=== PATIENT | female | born 1960 | race Caucasian/White ===

== ENCOUNTER 2020-03-29 08:56 | Observation (INO) | payer BC ==
[2020-03-29] MEDS ORDERED: Labetalol HCl 100 MG/20 ML VIAL ONE (09:19)
[2020-03-29 09:30] LABS: #Eosinphils 0.1 thou/uL (0.0-0.7); #Lymphocytes 1.2 thou/uL (1.20-3.40); #Monocytes 0.5 thou/uL (0.11-0.59); %Basophils 0.6 % (0.0-1.0); %Eosinophils 1.7 % (0.0-10.0); %Lymphocytes 17.9 % (21.0-51.0); %Monocytes 7.2 % (0.0-10.0); %Neutrophils 72.6 % (42.0-75.0); Hemoglobin 13.4 g/dL (12.0-16.0); Mean Corpuscular HGB CONC 33.2 g/dL (32.0-36.0); Mean Corpuscular Hemoglobin 29.2 pg (27.0-31.0); Mean Corpuscular Volume 87.9 fL (78.0-98.0); Mean Platelet Volume 7.5 fL (7.4-10.4); Platelet Count 257 thou/uL (130-400); White Blood Cell (WBC) Count 6.9 thou/uL (4.8-10.8)
[2020-03-29 09:52] LABS: ALT (SGPT) 20 U/L (8-55); AST (SGOT) 14 U/L (5-34); Albumin 3.9 g/dL (3.5-5.0); Alkaline Phosphatase 70 U/L (40-110); Anion Gap 12 mmol/L (10-20); BUN (Urea Nitrogen) 21 mg/dL (9.8-20.1); Bilirubin, Total 0.8 mg/dL (0.2-1.2); Calc. Creatinine Clearance 0 mL/min (70-130); Calcium 9.1 mg/dL (7.8-10.44); Carbon Dioxide 24 mmol/L (22-29); Chloride 108 mmol/L (98-107); Estimated GFR-MDRD 67; Globulin 2.9 g/dL (2.4-3.5); Glucose 129 mg/dL (70-105); Potassium 4.2 mmol/L (3.5-5.1); Protein, Total 6.8 g/dL (6.0-8.3); Sodium 140 mmol/L (136-145)
--- NOTE | 2020-03-29 10:28 | RAD ---
EXAM: Single view of the chest HISTORY: Chest pain and dizziness COMPARISON: 06/03/2018 FINDINGS: Single view of the chest shows an enlarged but stable cardiomediastinal silhouette. The pa cemaker is unchanged in position. Stable increased density projecting over the lower aspect of both thoraces likely represents the patient's overlying breast tissue. There is no evidence of consolidati on, mass, or pleural effusion. No acute osseous abnormality. IMPRESSION: Cardiomegaly without evidence of acute cardiopulmonary disease
[2020-03-29 11:34] LABS: Bilirubin Negative (Negative); Blood, Urine Negative (Negative); Clarity Clear (Clear); Glucose, Urine (Dipstick) Normal (Negative); Ketone, Urine Negative (Negative); Leukocyte Negative Leu/uL (Negative); Nitrite Negative (Negative); Protein, Urine (Dipstick) Negative (Neg-Trace); Urobilinogen Normal mg/dL (Less than 2); pH, Urine 5.5 (5.0-9.0)
[2020-03-29 13:06] LABS: Troponin I 0.014 ng/mL (< 0.028)
--- NOTE | 2020-03-29 14:28 | PDOC.HHP ---
Hospitalist HPI - History of Present Illness History of Present Illness: ADMISSION DATE: 03/29/2020 TIME OF ASSESSMENT: 1345 PRIMARY CARE PHYSICIAN: Carlie CHIEF COMPLAINT: Palpitations HPI: Patient is a 59-year-old female past medical history significant for atrial fibrillation and COVID-19. She presents to the ER today for complaints of pressure-like chest pain and a lightheaded feeling. She states that she was driving into work today and felt a pressure-like chest pain that lasted approximately 1 minute. She denies that it radiated anywhere, denied nausea, denied diaphoresis, denies shortness of breath. Afterward patient states she just did not feel right. This morning she took her Multaq as scheduled and took a double dose of her Coreg as she felt that her heart was in a weird rhythm. She also took her scheduled Eliquis. She has a history of 2 previous ablations and states that she was in a regular rhythm until the beginning of March. On February 26 she was diagnosed positive with COVID-19 and after that time she knows she was in atrial fibrillation again. She denies her defibrillator firing. ED COURSE: Today in the ER she had labs completed, chest x-ray and EKG. She was given 2 doses of labetalol 5 mg IV and 1 dose of Cardizem 15 mg IV. Patient was discussed with Rosa Rodríguez NP as she is a patient of theirs at [place] arrhythm[facility]. Recommendation was given for the Cardizem 15 mg IV and if she became rate controlled she could possibly be discharged today if not she will possibly need a cardioversion. VITAL SIGNS ThuMar 29, 2020 08:56 DARLYN Harrell Ashlee BP: 133/98, Pulse: 111, Resp: 20, O2 sat: 98 on (Room Air), Time: 03/29/2020 08:56. VITAL SIGNS ThuMar 29, 2020 09:30 DARLYN Harrell Ashlee BP: 123/73, Pulse: 102, Resp: 17, Temp: 98 (Oral), Pain: 0, O2 sat: 98 on (Room Air), Time: 03/29/2020 09:30. VITAL SIGNS ThuMar 29, 2020 10:24 DARLYN Harrell Ashlee BP: 114/76, Pulse: 106, Resp: 16, Pain: 0, O2 sat: 97 on (Room Air), Time: 03/29/2020 10:24. VITAL SIGNS Lyssa Mar 29, 2020 09:45 HarrellDARLYN Janice BP: 110/68, Pulse: 121, Resp: 24, Pain: 0, O2 sat: 96 on (Room Air), Time: 03/29/2020 09:45. VITAL SIGNS Lyssa Mar 29, 2020 11:01 HarrellDARLYN Janice BP: 131/83, Pulse: 110, Resp: 20, O2 sat: 97 on (Room Air), Time: 03/29/2020 11:01. VITAL SIGNS ThuMar 29, 2020 11:15 Julio CesarDARLYN Janice BP: 111/88, Pulse: 114, Resp: 18, O2 sat: 98 on (Room Air), Time: 03/29/2020 11:15. VITAL SIGNS ThuMar 29, 2020 11:30 HarrellDARLYN Janice BP: 117/81, Pulse: 114, Resp: 20, Pain: 0, O2 sat: 97 on (Room Air), Time: 03/29/2020 11:30. VITAL SIGNS ThuMar 29, 2020 12:00 HarrellDARLYN Janice BP: 113/84, Pulse: 124, Resp: 21, Pain: 0, O2 sat: 97 on (Room Air), Time: 03/29/2020 12:00. PAST MEDICAL HISTORY: A. fib PAST SURGICAL HISTORY: 2 ablations, pacemaker/ICD placed, SOCIAL HISTORY: Patient lives at home with family. She denies alcohol use, drug use, smoking. FAMILY HISTORY: No known family history. ALLERGIES: No known drug allergies CURRENT MEDICATIONS: Multaq Coreg 6.25 twice daily Eliquis 5 mg twice daily Hospitalist ROS - Review of Systems Cardiovascular: reports: chest pain, palpitations, edema, light headedness All other systems reviewed; all pertinent +/- noted in HPI/Subj - Exam General Appearance: NAD, awake alert ENT: normocephalic atraumatic Heart: no murmur, no rubs, irregular, diminshed peripheral pulses Respiratory: CTAB, no wheezes, no rales, no ronchi, normal chest expansion Gastrointestinal: soft, non-tender, non-distended, normal bowel sounds, no palpable masses Extremities: 2+ LE edema Psychiatric: A&O x 3 Hospitalist Results - Labs Result Diagrams: 03/29/20 09:24 03/29/20 09:24 Lab results: WBC 6.9 thou/uL (4.8-10.8) 03/29/20 09:24 Hgb 13.4 g/dL (12.0-16.0) 03/29/20 09:24 Hct 40.4 % (36.0-47.0) 03/29/20 09:24 MCV 87.9 fL (78.0-98.0) 03/29/20 09:24 Plt Count 257 thou/uL (130-400) 03/29/20 09:24 Neutrophils % 72.6 % (42.0-75.0) 03/29/20 09:24 Sodium 140 mmol/L (136-145) 03/29/20 09:24 Potassium 4.2 mmol/L (3.5-5.1) 03/29/20 09:24 Chloride 108 mmol/L (98-107) H 03/29/20 09:24 Carbon Dioxide 24 mmol/L (22-29) 03/29/20 09:24 BUN 21 mg/dL (9.8-20.1) H 03/29/20 09:24 Creatinine 0.87 mg/dL (0.6-1.1) 03/29/20 09:24 Glucose 129 mg/dL (70-105) H 03/29/20 09:24 Calcium 9.1 mg/dL (7.8-10.44) 03/29/20 09:24 Total Bilirubin 0.8 mg/dL (0.2-1.2) 03/29/20 09:24 AST 14 U/L (5-34) 03/29/20 09:24 ALT 20 U/L (8-55) 03/29/20 09:24 Alkaline Phosphatase 70 U/L (40-110) 03/29/20 09:24 Troponin I 0.014 ng/mL (< 0.028) 03/29/20 12:33 B-Natriuretic Peptide 231.6 pg/mL (0-100) H 03/29/20 09:24 Serum Total Protein 6.8 g/dL (6.0-8.3) 03/29/20 09:24 Albumin 3.9 g/dL (3.5-5.0) 03/29/20 09:24 Urine Ketones Negative mg/dL (Negative) 03/29/20 10:44 Urine Blood Negative (Negative) 03/29/20 10:44 Urine Nitrite Negative (Negative) 03/29/20 10:44 Ur Leukocyte Esterase Negative Giovani/uL (Negative) 03/29/20 10:44 - EKG Interpretation EKG: Afib with RVR 120 - Radiology Interpretation Chest x-ray Status: report reviewed by me Additional Comment: IMPRESSION: Cardiomegaly without evidence of acute cardiopulmonary disease Hospitalist H&P A/P - Problem (1) Atrial fibrillation with RVR Code(s): I48.91 - UNSPECIFIED ATRIAL FIBRILLATION Status: Acute (2) Chest pain Code(s): R07.9 - CHEST PAIN, UNSPECIFIED Status: Resolved (3) Anxiety Code(s): F41.9 - ANXIETY DISORDER, UNSPECIFIED Status: Acute - Plan Plan: #Atrial fibrillation with RVR Patient has history of atrial fibrillation and is anticoagulated on Eliquis We will attempt IV push of Cardizem and if this is not successful in helping rate control will need to be started on Cardizem drip and have EP consult for the morning for possible cardioversion #Chest painresolved Continue to trend troponins Monitor on telemetry Patient feels this could have been caused by anxiety due to the odd feeling she was having #`Anxiety No treatment at this time Does not want to be in the hospital, will continue to work with patient to keep her calm and participatory with care CODE STATUS: Full Surrogate decision-maker is her , Ed Patient has been discussed with Dr. Ray and and Rosa Rodríguez NP
[2020-03-29] MEDS ORDERED: Diltiazem 125 MG in Sodium Chloride 0.9% 100 ML IVPB SCH (17:30)
[2020-03-29 20:54] VITALS: BMI 41.6
[2020-03-29] MEDS: Apixaban 5 MG TAB PO SCH (20:59)
[2020-03-29 22:57] LABS: SARS-CoV-2 MS2 Positive; SARS-CoV-2 N Gene Negative; SARS-CoV-2 S Gene Negative; SARS-CoV-2 by NAA Not Detected (NotDetected); SARS-CoV-2 orf1ab Negative
[2020-03-30 05:32] LABS: #Basophils 0.1 thou/uL (0.0-0.2); #Eosinphils 0.2 thou/uL (0.0-0.7); #Lymphocytes 1.7 thou/uL (1.20-3.40); #Monocytes 0.6 thou/uL (0.11-0.59); #Neutrophils 4.3 thou/uL (1.40-6.50); %Eosinophils 2.4 % (0.0-10.0); %Lymphocytes 24.7 % (21.0-51.0); %Monocytes 8.3 % (0.0-10.0); %Neutrophils 63.6 % (42.0-75.0); Hemoglobin 13.7 g/dL (12.0-16.0); Mean Corpuscular HGB CONC 32.2 g/dL (32.0-36.0); Mean Corpuscular Hemoglobin 28.4 pg (27.0-31.0); Mean Corpuscular Volume 88.2 fL (78.0-98.0); Mean Platelet Volume 7.7 fL (7.4-10.4); Platelet Count 247 thou/uL (130-400); RBC Distribution Width 12.2 % (11.5-14.5); Red Blood Cell (RBC) Count 4.81 mill/uL (4.20-5.40); White Blood Cell (WBC) Count 6.7 thou/uL (4.8-10.8)
[2020-03-30 05:56] LABS: Anion Gap 15 mmol/L (10-20); BUN (Urea Nitrogen) 15 mg/dL (9.8-20.1); Calc. Creatinine Clearance 149 mL/min (70-130); Calcium 9.1 mg/dL (7.8-10.44); Carbon Dioxide 24 mmol/L (22-29); Chloride 106 mmol/L (98-107); Estimated GFR-MDRD 62; Glucose 114 mg/dL (70-105); Magnesium 2.2 mg/dL (1.6-2.6); Potassium 3.9 mmol/L (3.5-5.1); Sodium 141 mmol/L (136-145)
[2020-03-30] MEDS: Carvedilol 6.25 MG TAB PO SCH ×2 (09:07→16:25)
[2020-03-30] MEDS: Apixaban 5 MG TAB PO SCH (09:07)
[2020-03-30] MEDS ORDERED: Dronedarone HCl 400 MG TAB PO SCH ×2 (14:00→21:00)
[2020-03-30] MEDS ORDERED: PROPOFOL 40 ML ONE (14:45)
[2020-03-30] MEDS ORDERED: PROPOFOL 20 ML ONE (14:48)
--- NOTE | 2020-03-30 16:01 | PDOC.DS.DS ---
Provider - Provider Date of Admission: 03/29/20 11:47 Date of Discharge: 03/30/20 Admitting Provider: Bart Ray MD Consultations: Other (EP) Primary Care Physician: Dr. Del Toro Course - Hospital Course Resuscitation Status: 03/29/20 13:56 Resuscitation Status Routine Co-Sign Provider: Resuscitation Status: FULL: Full Resuscitation Discussed with: pt - Labs Lab Results: 03/30/20 05:04 03/30/20 05:05 Abnormal Lab Results - Last 48 hrs 03/29/20 09:24: Chloride 108 H, BUN 21 H 03/29/20 09:24: B-Natriuretic Peptide 231.6 H 03/29/20 09:24: Lymphocytes % 17.9 L 03/30/20 05:04: Monocytes # 0.6 H Microbiology - Entire Visit 03/29/20 14:13 Venous blood - Left Arm Blood Culture - Preliminary Methicillin resistant S.aureus 03/29/20 14:13 Venous blood - Right Arm Blood Culture - Preliminary Specimen has been received and culture in progress. No Growth to date. - Physical Exam Vitals: Vital Signs (12 hours) Temp Pulse Resp BP Pulse Ox 03/30/20 12:00 97.3 F L 64 16 107/59 L 96 03/30/20 08:26 98 F 104 H 24 H 135/75 94 L 03/30/20 04:00 97.7 F 83 16 117/56 L 96 Weight Weight 315 lb 11.231 oz Physical Exam: The patient was seen and examined on the day of discharge. Problem - Problem (1) Atrial fibrillation with RVR Code(s): I48.91 - UNSPECIFIED ATRIAL FIBRILLATION Status: Acute (2) Chest pain Code(s): R07.9 - CHEST PAIN, UNSPECIFIED Status: Resolved (3) Anxiety Code(s): F41.9 - ANXIETY DISORDER, UNSPECIFIED Status: Acute Plan - Discharge Medications Home Medications: Medication Instructions Recorded Confirmed Type Apixaban [Eliquis] 5 mg PO BID 10/11/15 03/30/20 History Carvedilol [Coreg] 2 tab PO BID 10/11/15 03/30/20 History Dronedarone HCl [Multaq] 1 tab PO BID 03/30/20 03/30/20 History Allergies: No Known Allergies Allergy (Verified 03/30/20 08:36) - Discharge Instructions Activity:: Activity as Tolerated - Follow up Plan Referrals: Unknown,Unknown [Primary Care Provider] - Disposition: HOME
[2020-03-30 16:03] VITALS: BP 138/75; TEMP 97.4
--- NOTE | 2020-03-30 16:07 | PDOC.DS.DS ---
Provider - Provider Date of Admission: 03/29/20 11:47 Date of Discharge: 03/30/20 Admitting Provider: Bart Ray MD Consultations: Other (EP) Primary Care Physician: Dr. Del Toro Course - Hospital Course Hospital Course: Patient is a 59-year-old female with past medical history of atrial fibrillation and COVID-19. She presents to the ER after complaints of chest pain and lightheaded feeling. She was found to be in A. fib with RVR in the 120s. She states after she was diagnosed with Covid last month she went back into atrial fibrillation. She was started on a Cardizem drip to help with rate control overnight. EP was consulted and they performed a cardioversion which was successful. Patient is being discharged in sinus rhythm in the 80s. She states she is feeling wonderful. While in the hospital she was found to have 1 out of 2 blood cultures positive for MRSA. Patient has remained afebrile with a normal white blood cell count, no other signs of infection. These cultures were redrawn prior to discharge. I reached out to patient's primary care physician's office and talked with the provider there who stated they would follow-up with her regarding the culture results on Thursday so she would not have to stay overnight just pending those. This plan was discussed with patient and she is agreeable for discharge and aware to follow-up for those results. She is to follow-up with Dr. Sparrow in 6 weeks also. Resuscitation Status: 03/29/20 13:56 Resuscitation Status Routine Co-Sign Provider: Resuscitation Status: FULL: Full Resuscitation Discussed with: pt - Labs Lab Results: 03/30/20 05:04 03/30/20 05:05 Abnormal Lab Results - Last 48 hrs 03/29/20 09:24: Chloride 108 H, BUN 21 H 03/29/20 09:24: B-Natriuretic Peptide 231.6 H 03/29/20 09:24: Lymphocytes % 17.9 L 03/30/20 05:04: Monocytes # 0.6 H Microbiology - Entire Visit 03/29/20 14:13 Venous blood - Left Arm Blood Culture - Preliminary Methicillin resistant S.aureus 03/29/20 14:13 Venous blood - Right Arm Blood Culture - Preliminary Specimen has been received and culture in progress. No Growth to date. - Physical Exam Vitals: Vital Signs (12 hours) Temp Pulse Resp BP Pulse Ox 03/30/20 15:59 97.4 F L 84 18 138/75 97 03/30/20 12:00 97.3 F L 64 16 107/59 L 96 03/30/20 08:26 98 F 104 H 24 H 135/75 94 L Weight Weight 315 lb 11.231 oz Physical Exam: The patient was seen and examined on the day of discharge. Problem - Problem (1) Atrial fibrillation with RVR Code(s): I48.91 - UNSPECIFIED ATRIAL FIBRILLATION Status: Acute (2) Chest pain Code(s): R07.9 - CHEST PAIN, UNSPECIFIED Status: Resolved (3) Anxiety Code(s): F41.9 - ANXIETY DISORDER, UNSPECIFIED Status: Acute Plan - Discharge Medications Home Medications: Medication Instructions Recorded Confirmed Type Apixaban [Eliquis] 5 mg PO BID 10/11/15 03/30/20 History Carvedilol [Coreg] 2 tab PO BID 10/11/15 03/30/20 History Dronedarone HCl [Multaq] 1 tab PO BID 03/30/20 03/30/20 History Allergies: No Known Allergies Allergy (Verified 03/30/20 08:36) - Discharge Instructions Activity:: Activity as Tolerated - Follow up Plan Referrals: Alejandra Del Toro DO [Active] - 04/02/20 (Call for blood culture results) Jeffrey Sparrow MD [String Cutter] - (6 weeks) Disposition: HOME Quality - Care Measures CORE MEASURES:: N/A
--- NOTE | 2020-03-30 16:10 | OP ---
DATE OF PROCEDURE: 03/30/2020 PROCEDURE PERFORMED: Electrical cardioversion. REASON FOR PROCEDURE: Ms. Montelongo is a 59-year-old woman with history of recurrent atrial arrhythmias, who has been on Multaq in the past with reasonable efficacy. function. She is now here with recurrent atrial fibrillation anticoagulation and she is here for a planned cardioversion. DESCRIPTION OF PROCEDURE: The patient received propofol by Anesthesia specialist. After adequate level of sedation achieved, a synchronized 100-joule external shock promptly converted the patient back to sinus rhythm. Baseline rhythm was sinus rhythm at 83 beats per minute. The patient tolerated the procedure well. No complications noted. PLAN: Continue oral anticoagulation and Multaq for now with a reasonable efficacy. We will see her back in the office in about 6 weeks. Job ID: [id number]
--- NOTE | 2020-03-31 08:38 | CON ---
DATE OF CONSULTATION: I am seeing Ms. Montelongo at our [facility] for Electrophysiology consultation on the telemetry floor. Her problems are; 1. Recurrent atrial arrhythmias. a. History of left atrial ablation, most recently in July 2018. b. Recurrent atrial arrhythmias on Multaq suppression. c. Current admission with atrial fibrillation with rapid rates. 2. Chronic CHF with nonischemic cardiomyopathy. a. History of reduced LVEF 45% to 50% range per notes. 3. History of dual-chamber ICD implant with a Medtronic Evera XT DR device, implanted in September 2016. ALLERGIES: NONE NOTED. MEDICATIONS: At home included; 1. Carvedilol 6.25 mg twice a day. 2. Apixaban 5 mg twice a day. 3. Multaq 400 mg twice a day. SUBJECTIVE: Ms. Montelongo has experienced increasing palpitations, she had near-syncopal . The palpitations started about 5 days ago, but gotten worse. She was evaluated in the ER, found to be in atrial fibrillation and the diltiazem drip was initiated. Now, she is feeling better. She denies PND or orthopnea. No stroke-like symptoms. No neurological deficits. No fever, chills, or cough. No bleeding issues, on ongoing anticoagulation. She does not pass out. REVIEW OF SYSTEMS: The rest of 12-point review of system otherwise unremarkable. PAST MEDICAL HISTORY: As above. SOCIAL HISTORY: The patient denies smoking, EtOH, or drug abuse. FAMILY HISTORY: Not contributory. OBJECTIVE DATA: VITAL SIGNS: Blood pressure is 107/59, heart rate 64, respiratory rate is 16, and temperature 97.3 degrees Fahrenheit. GENERAL: Reveals alert and oriented woman with elevated BMI, in no apparent distress. NECK: Supple. Jugular veins not distended. CHEST: Coarse without crackles. CARDIAC: Heart sounds are irregularly irregular. S1 and S2 variable. No murmur or gallop. ABDOMEN: Benign. Bowel sounds positive. EXTREMITIES: Lower extremities without edema, clubbing, or cyanosis. Pulses are adequate. NEUROLOGIC: The patient is nonfocal. MUSCULOSKELETAL: Without joint swelling or deformity. SKIN: Without rash. DATABASE: EKG is reviewed, revealing atrial fibrillation, rate of 134 beats per minute. QTc is 528 milliseconds. QRS is narrow at 84 milliseconds. Subsequent EKG reveals still ongoing atrial fibrillation at 120 beats per minute. QTc 505 milliseconds. The telemetry strips reveal improving ventricular rates with diltiazem drip. LABORATORY DATA: White cell count is 6.7, hemoglobin is 13.7, and platelet count is 247. Sodium 141, potassium 3.9, BUN is 15, and creatinine is 0.9. The troponin I's are 0.02, 0.01, and 0.02 consecutively. BNP is 231. The ICD interrogation was reviewed in detail revealing a Medtronic Evera XT DR dual-chamber ICD longevity at 6 years. Lead parameters are adequate. Sensing 0.8 mV and 4.1 mV respectively. Low atrial fibrillation burden with more sustained episodes noted in April of last year, August of last year and October of this year, which were mostly asymptomatic by the patient. This recurrent episodes started on the and ventricular rates with rapid rates are noted at times. to terminate arrhythmias. ASSESSMENT AND PLAN: 1. Ms. Montelongo is a pleasant 59-year-old woman with prior history of recurrent atrial arrhythmias, who has been on Multaq suppression. She also has history of nonischemic cardiomyopathy, although with mildly reduced left ventricular ejection fraction on most recent echocardiograms. She is readmitted with repeat arrhythmia despite ongoing Multaq therapy. Some provoking factors could have been the relative recent COVID infection, which she has now recovered from. 2. Methicillin-resistant Staphylococcus aureus as per blood cultures yesterday. 3. Chronic anticoagulation with Eliquis, continue. We discussed the pros and cons of cardioversion. infrequent episode, at this point, it is still reasonable to continue Multaq, which mostly has reasonable efficacy, although recurrences will likely continue. We will proceed with the cardioversion and see her back in the office later. Thank you for allowing me to participate in the care of this patient. Job ID: [id number]
--- NOTE | 2020-04-03 07:19 | EKG ---
Test Reason : Blood Pressure : / mmHG Vent. Rate : 134 BPM Atrial Rate : 110 BPM P-R Int : 000 ms QRS Dur : 084 ms QT Int : 354 ms P-R-T Axes : 000 027 258 degrees QTc Int : 528 ms Atrial fibrillation with rapid ventricular response Abnormal ECG Confirmed by SHERIDAN FLOWERS MD ([id number]) on 04/03/2020 7:18:56 AM Referred By: [facility] Confirmed By:SHERIDAN FLOWERS MD
== END 2020-03-30 18:22 | disposition home or self-care (01) ==
LOC: EEVIPCON 08:56 → ERS 08:56 → ERHOLD 11:47 → 2SE 20:28
PROVIDERS: ADMIT Internal Medicine; ATTEND Internal Medicine
PROC: 5A2204Z Restoration of Cardiac Rhythm, Single (ICD-10-PCS; principal; 2020-03-30)
DX: I48.91 Unspecified atrial fibrillation (principal); I50.9 Heart failure, unspecified; F41.9 Anxiety disorder, unspecified; I51.7 Cardiomegaly; I49.9 Cardiac arrhythmia, unspecified; I42.8 Other cardiomyopathies; A49.02 Methicillin resistant Staphylococcus aureus infection, unspecified site; Z79.01 Long term (current) use of anticoagulants; Z79.899 Other long term (current) drug therapy; Z95.810 Presence of automatic (implantable) cardiac defibrillator; Z86.19 Personal history of other infectious and parasitic diseases; Z20.828 Contact with and (suspected) exposure to other viral communicable diseases
CPT/HCPCS: 36415; 71045; 80048; 80053; 81003; 83735; 83880; 84443; 84484; 85025; 87040; 87077; 87149; 87186; 87635; 92960; 93005; 93010; 96374; 96375; 96376; G0378; J2704; J3490; U0003

== ENCOUNTER 2021-04-29 12:26 | Outpatient (CLI) | payer BC | END 2021-04-29 12:27 | disposition home or self-care (01) | LOC: BICMAMMO 12:26 | PROVIDERS: ATTEND Family Medicine | DX: Z12.31 Encounter for screening mammogram for malignant neoplasm of breast (principal); Z80.3 Family history of malignant neoplasm of breast | CPT/HCPCS: 77063; 77067 ==

== ENCOUNTER 2021-09-03 17:33 | Outpatient (CLI) | payer BC ==
[2021-09-03 18:08] LABS: Hemoglobin 14.4 g/dL (12.0-15.5); Mean Corpuscular HGB CONC 33.6 g/dL (32.0-36.0); Mean Corpuscular Volume 86.3 fl (81.6-98.3); Mean Platelet Volume 9.9 fl (7.4-10.4); Platelet Count 285 10x3/uL (150-450); RBC Distribution Width 12.7 % (11.5-14.5); Red Blood Cell (RBC) Count 4.96 10x6/uL (3.90-5.03); White Blood Cell (WBC) Count 7.6 10x3/uL (3.5-10.5)
[2021-09-03 18:34] LABS: INR-International Normal Ratio 1.1; PTT 27.7 sec (22.0-33.0); Prothrombin Time 11.4 sec (9.5-12.1)
[2021-09-03 18:37] LABS: Anion Gap 15 mmol/L (10-20); BUN (Urea Nitrogen) 19 mg/dL (9.8-20.1); Calc. Creatinine Clearance 0 mL/min (70-130); Calcium 9.3 mg/dL (7.8-10.44); Carbon Dioxide 22 mmol/L (22-29); Chloride 107 mmol/L (98-107); Glucose 179 mg/dL (70-105); Potassium 3.8 mmol/L (3.5-5.1); Sodium 140 mmol/L (136-145)
[2021-09-04 00:26] LABS: SARS-CoV-2 PCR by NAA Not Detected (NotDetected)
== END 2021-09-03 17:34 | disposition home or self-care (01) ==
LOC: LABBT 17:33
PROVIDERS: ATTEND Internal Medicine Cardiovascular Disease
DX: Z01.812 Encounter for preprocedural laboratory examination (principal); Z20.822 Contact with and (suspected) exposure to COVID-19
CPT/HCPCS: 80048; 85027; 85610; 85730; U0003; U0005

== ENCOUNTER → 2021-09-04 | Day surgery (SDC) | payer BC ==
[2021-09-03 17:42] VITALS: BMI 43.5
[~2021-09-04] MED LIST: PROPOFOL 20 ML ONE
== END | disposition home or self-care (01) ==
LOC: SDC 11:32
PROVIDERS: ATTEND Internal Medicine Cardiovascular Disease
PROC: 5A2204Z Restoration of Cardiac Rhythm, Single (ICD-10-PCS; principal; 2021-09-04)
DX: I48.91 Unspecified atrial fibrillation (principal); I42.0 Dilated cardiomyopathy; Z79.01 Long term (current) use of anticoagulants; Z79.899 Other long term (current) drug therapy; Z95.810 Presence of automatic (implantable) cardiac defibrillator
CPT/HCPCS: 92960; J2704

== ENCOUNTER 2023-04-01 08:15 | Outpatient (CLI) | payer BC | END 2023-04-01 08:16 | disposition home or self-care (01) | LOC: BICMAMMO 08:15 | PROVIDERS: ATTEND Family Medicine | DX: Z12.31 Encounter for screening mammogram for malignant neoplasm of breast (principal); N64.89 Other specified disorders of breast; Z80.3 Family history of malignant neoplasm of breast | CPT/HCPCS: 77063; 77067 ==

== ENCOUNTER 2023-04-16 08:08 | Outpatient (CLI) | payer BC | END 2023-04-16 08:09 | disposition home or self-care (01) | LOC: BICMAMMO 08:08 | PROVIDERS: ATTEND Family Medicine | DX: N64.89 Other specified disorders of breast (principal) | CPT/HCPCS: G0279 ==

== ENCOUNTER 2023-07-17 11:24 | Day surgery (SDC) | payer BC ==
[2023-07-16 13:21] VITALS: BMI 42.2
[2023-07-17 12:56] LABS: #Basophils 0.1 thou/uL (0.0-0.2); #Eosinphils 0.1 thou/uL (0.0-0.7); #Monocytes 0.6 thou/uL (0.11-0.59); #Neutrophils 5.2 thou/uL (1.40-6.50); %Basophils 0.9 % (0.0-1.0); %Eosinophils 1.7 % (0.0-10.0); %Lymphocytes 19.8 % (21.0-51.0); %Monocytes 8.1 % (0.0-10.0); %Neutrophils 69.1 % (42.0-75.0); Hematocrit 38.3 % (36.0-47.0); Hemoglobin 12.5 g/dL (12.0-16.0); Mean Corpuscular HGB CONC 32.6 g/dL (32.0-36.0); Mean Corpuscular Hemoglobin 29.1 pg (27.0-31.0); Mean Corpuscular Volume 89.3 fl (78.0-98.0); Mean Platelet Volume 10.5 fL (7.4-10.4); Platelet Count 230 10x3/uL (130-400); RBC Distribution Width 13.1 % (11.5-14.5); Red Blood Cell (RBC) Count 4.29 mill/uL (4.20-5.40); White Blood Cell (WBC) Count 7.6 10x3/uL (4.8-10.8)
[2023-07-17 13:08] LABS: INR-International Normal Ratio 1.1; PTT 28.6 sec (22.9-36.1); Prothrombin Time 14.5 sec (12.0-14.7)
[2023-07-17 13:15] LABS: Anion Gap 12 mmol/L (10-20); BUN (Urea Nitrogen) 14 mg/dL (9.8-20.1); Calc. Creatinine Clearance 174 mL/min (70-130); Carbon Dioxide 22 mmol/L (23-31); Chloride 109 mmol/L (98-107); Estimated GFR 86; Glucose 104 mg/dL (80-115); Potassium 4.2 mmol/L (3.5-5.1); Sodium 139 mmol/L (136-145)
[2023-07-17] MEDS ORDERED: PROPOFOL 200 MG/20 ML VIAL ONE (14:49)
== END 2023-07-17 15:30 | disposition home or self-care (01) ==
LOC: SDC 11:24
PROVIDERS: ATTEND Internal Medicine Cardiovascular Disease
PROC: 5A2204Z Restoration of Cardiac Rhythm, Single (ICD-10-PCS; principal; 2023-07-17)
DX: I48.92 Unspecified atrial flutter (principal); I47.19 Other supraventricular tachycardia; I48.0 Paroxysmal atrial fibrillation; Z95.810 Presence of automatic (implantable) cardiac defibrillator
CPT/HCPCS: 80048; 85025; 85610; 85730; 92960; 93005; 93010

== ENCOUNTER 2024-02-01 09:40 | Outpatient (CLI) | payer BC ==
[2024-02-01 10:17] LABS: #Basophils 0.07 10x3/uL (0.0-0.2); %Eosinophils 2.4 % (0.0-10.0); %Lymphocytes 19.7 % (21.0-51.0); %Monocytes 7.5 % (0.0-10.0); %Neutrophils 69.1 % (42.0-75.0); Hematocrit 39.4 % (36.0-47.0); Hemoglobin 12.8 g/dL (12.0-16.0); Mean Corpuscular HGB CONC 32.5 g/dL (32.0-36.0); Mean Corpuscular Hemoglobin 29.4 pg (27.0-31.0); Mean Corpuscular Volume 90.6 fL (78.0-98.0); Platelet Count 243 10x3/uL (130-400); RBC Distribution Width 12.8 % (11.5-14.5); Red Blood Cell (RBC) Count 4.35 mill/uL (4.20-5.40)
[2024-02-01 10:27] LABS: Anion Gap 11 mmol/L (10-20); BUN (Urea Nitrogen) 20 mg/dL (9.8-20.1); Calc. Creatinine Clearance 0 mL/min (70-130); Calcium 9.1 mg/dL (7.8-10.44); Carbon Dioxide 21 mmol/L (23-31); Chloride 113 mmol/L (98-107); Estimated GFR 66; Glucose 133 mg/dL (80-115); Potassium 4.4 mmol/L (3.5-5.1); Sodium 141 mmol/L (136-145)
[2024-02-01 10:31] LABS: Prothrombin Time 13.6 sec (12.0-14.7)
[2024-02-01 10:32] LABS: PTT 29.3 sec (22.9-36.1)
== END 2024-02-01 09:41 | disposition home or self-care (01) ==
LOC: LABBT 09:40
PROVIDERS: ATTEND Internal Medicine Cardiovascular Disease
DX: Z01.812 Encounter for preprocedural laboratory examination (principal); I48.0 Paroxysmal atrial fibrillation; Z95.810 Presence of automatic (implantable) cardiac defibrillator
CPT/HCPCS: 80048; 85025; 85610; 85730

== ENCOUNTER 2024-02-03 06:18 | Day surgery (SDC) | payer BC ==
[2024-02-01 10:04] VITALS: BMI 42.2
[2024-02-03] MEDS ORDERED: fentaNYL 50 mcg/mL 1 mL Vial ONE ×2 (06:40→11:58)
[2024-02-03] MEDS ORDERED: ePHEDrine Sulfate 50 MG/10 ML VIAL ONE (06:40)
[2024-02-03] MEDS ORDERED: Dexamethasone 4 mg/ml Vial ONE (06:40)
[2024-02-03] MEDS ORDERED: Rocuronium Bromide 10 MG/ML (10ML VIAL) ONE (06:40)
[2024-02-03] MEDS ORDERED: SUGAMMADEX SODIUM 200 MG/2 ML VIAL ONE ×2 (06:40→08:28)
[2024-02-03] MEDS ORDERED: Ondansetron PF 4 MG/2 ML Vial ONE (06:40)
[2024-02-03] MEDS ORDERED: Midazolam HCl 2 mg/2 ml Vial ONE (06:41)
[2024-02-03] MEDS ORDERED: PROPOFOL 20 ML ONE ×2 (06:42→08:28)
[2024-02-03] MEDS ORDERED: Vasopressin 20 UNITS/ML VIAL ONE (06:42)
[2024-02-03] MEDS ORDERED: PHENYLEPHRINE-NS 100 MCG/ML 10 ML SYRINGE ONE (06:42)
[2024-02-03] MEDS ORDERED: Heparin 10,000 UNITS/ 10 ML VIAL ONE (06:43)
[2024-02-03] MEDS ORDERED: CEFAZOLIN 2 GM VIAL ONE (06:43)
[2024-02-03] MEDS ORDERED: CEFAZOLIN 1 GM VIAL ONE ×2 (08:09→08:15)
[2024-02-03] MEDS ORDERED: Gentamicin 80 MG/2 ML VIAL ONE (08:14)
[2024-02-03] MEDS ORDERED: DOPamine 400 MG/D5W 250 ML 250 ML ONE (10:20)
[2024-02-03] MEDS ORDERED: Iopamidol 370 76% 100 ML VIAL ONE (11:21)
== END 2024-02-03 14:50 | disposition home or self-care (01) ==
LOC: SDC 06:18
PROVIDERS: ATTEND Internal Medicine Cardiovascular Disease
PROC: 02583ZZ Destruction of Conduction Mechanism, Percutaneous Approach (ICD-10-PCS; principal; 2024-02-03)
DX: I48.0 Paroxysmal atrial fibrillation (principal); I34.0 Nonrheumatic mitral (valve) insufficiency; E66.9 Obesity, unspecified; I11.0 Hypertensive heart disease with heart failure; I50.22 Chronic systolic (congestive) heart failure; I42.8 Other cardiomyopathies; Z79.82 Long term (current) use of aspirin; Z79.899 Other long term (current) drug therapy; Z88.8 Allergy status to other drugs, medicaments and biological substances; Z79.01 Long term (current) use of anticoagulants; Z68.41 Body mass index [BMI] 40.0-44.9, adult; Z95.810 Presence of automatic (implantable) cardiac defibrillator
CPT/HCPCS: 33225; 33264; 36005; 93005; 93613; 93641; 93650; C1760; C1763; C1769; C1882; C1894; C1900; C2630; J0690; J1100; J1265; J1580; J1644; J2250; J2405; J2704; J3010; Q9967